=== PATIENT | female | born 1935 | race Caucasian/White ===

== ENCOUNTER 2018-02-14 20:45 | Observation (INO) | payer MEDICARE ==
[2018-02-14] MEDS: SOD CHLORIDE 0.9% 500 ML IV (21:16)
[2018-02-14] MEDS: DIPHTH/TET/ACEL PERTUSS (ADULT) 0.5 ML VIAL IM* (21:18)
[2018-02-14] MEDS: ACETAMINOPHEN 325 MG TAB PO (21:19)
[2018-02-14 21:20] LABS: ADD MAN DIFF? NO
[2018-02-14 21:22] LABS: WHITE BLOOD COUNT 5.9 10^3/ul (4.8-10.8)
[2018-02-14 21:22] LABS: BASOPHILS % 0.5 % (0.0-2.0); EOSINOPHILS # 0.1 10^3/ul (0.0-0.5); EOSINOPHILS % 0.9 % (0.0-7.0); HEMOGLOBIN 12.6 g/dl (12.0-16.0); LYMPHOCYTES # 1.4 10^3/ul (0.8-2.9); LYMPHOCYTES % 24.4 % (15.0-51.0); MEAN CORPUSCULAR HEMOGLOBIN 30.7 pg (29.0-33.0); MEAN CORPUSCULAR HGB CONC 33.2 g/dl (32.0-37.0); MEAN CORPUSCULAR VOLUME 92.7 fl (82.0-101.0); MEAN PLATELET VOLUME 9.5 fl (7.4-10.4); MONOCYTE # 0.5 10^3/ul (0.3-0.9); MONOCYTES % 8.9 % (0.0-11.0); NEUTROPHIL # 3.8 10^3/ul (1.6-7.5); PLATELET COUNT 254 10^3/UL (140-415); RED CELL DISTRIBUTION WIDTH 12.1 % (11.5-14.5)
[2018-02-14 21:47] LABS: INR 0.89; PROTIME 12.1 Sec (11.9-14.9); PT RATIO 0.9
[2018-02-14 21:48] LABS: PARTIAL THROMBOPLASTIN TIME 24.1 Sec (25.0-35.0)
[2018-02-14 21:54] LABS: ANION GAP 9 (8-16); BLOOD UREA NITROGEN 20 mg/dl (7-20); CALCIUM 9.1 mg/dl (8.4-10.2); CARBON DIOXIDE 29 mmol/L (21-31); CHLORIDE 104 mmol/L (97-110); GLUCOSE 98 mg/dl (70-220); POTASSIUM 3.8 mmol/L (3.5-5.1); SODIUM 138 mmol/L (135-144)
[2018-02-14 22:05] LABS: TROPONIN-I < 0.010 ng/ml (0.000-0.120)
[2018-02-14] MEDS: HALOPERIDOL 5 MG INJ IV (23:41)
[2018-02-14] MEDS: CLINDAMYCIN 600 MG/D5W (PMX) 50 ML IVPB (23:41)
[2018-02-15] MEDS ORDERED: MAGNESIUM HYDROXIDE 30ML CUP PO
[2018-02-15] MEDS ORDERED: ONDANSETRON 4 MG INJ IV ×2
[2018-02-15] MEDS ORDERED: ACETAMINOPHEN 325 MG TAB PO ×3
[2018-02-15] MEDS ORDERED: NACL 0.9% 3 ML SYG IV
[2018-02-15] MEDS ORDERED: LIDOCAINE 1% (MDV) 10 ML INJ INJ (00:05)
[2018-02-15] MEDS: LIDOCAINE 1% (MDV) 20 ML INJ INFIL (00:22)
[2018-02-15] MEDS: SOD CHLORIDE 0.9% 1,000 ML IV ×2 (00:30→17:53)
[2018-02-15] MEDS ORDERED: hydrALAzine 20 MG INJ IV (02:00)
[2018-02-15] MEDS: hydrALAzine 20 MG INJ IV (04:21)
[2018-02-15] MEDS: PANTOPRAZOLE (EC) 40 MG TAB PO (06:00)
[2018-02-15 06:14] LABS: ADD MAN DIFF? NO
[2018-02-15 06:23] LABS: WHITE BLOOD COUNT 8.1 10^3/ul (4.8-10.8)
[2018-02-15 06:23] LABS: BASOPHILS % 0.5 % (0.0-2.0); EOSINOPHILS % 0.2 % (0.0-7.0); HEMATOCRIT 39.9 % (37.0-47.0); HEMOGLOBIN 13.4 g/dl (12.0-16.0); LYMPHOCYTES % 11.9 % (15.0-51.0); MEAN CORPUSCULAR HEMOGLOBIN 30.5 pg (29.0-33.0); MEAN CORPUSCULAR HGB CONC 33.6 g/dl (32.0-37.0); MEAN CORPUSCULAR VOLUME 90.7 fl (82.0-101.0); MEAN PLATELET VOLUME 9.7 fl (7.4-10.4); MONOCYTE # 0.7 10^3/ul (0.3-0.9); MONOCYTES % 8.8 % (0.0-11.0); NEUTROPHIL # 6.4 10^3/ul (1.6-7.5); NEUTROPHILS % 78.4 % (39.0-77.0); PLATELET COUNT 265 10^3/UL (140-415); RED CELL DISTRIBUTION WIDTH 12.3 % (11.5-14.5)
[2018-02-15 06:40] LABS: ALANINE AMINOTRANSFERASE 13 IU/L (13-69); ALBUMIN 4.2 g/dl (3.3-4.9); ALKALINE PHOSPHATASE 72 IU/L (42-121); ANION GAP 10 (8-16); ASPARTATE AMINO TRANSFERASE 21 IU/L (15-46); BLOOD UREA NITROGEN 13 mg/dl (7-20); CALCIUM 9.4 mg/dl (8.4-10.2); CARBON DIOXIDE 28 mmol/L (21-31); CHLORIDE 106 mmol/L (97-110); GLUCOSE 93 mg/dl (70-220); MAGNESIUM 1.8 mg/dl (1.7-2.5); POTASSIUM 3.4 mmol/L (3.5-5.1); SODIUM 141 mmol/L (135-144)
[2018-02-15 07:48] LABS: HEMOGLOBIN A1C 5.3 % (0-5.9)
[2018-02-15] MEDS: METHENAMINE 1 GM TAB PO ×2 (10:22→21:24)
[2018-02-15] MEDS: CHOLECALCIFEROL 2,000 UNIT CAP PO (10:22)
[2018-02-15] MEDS: ASCORBIC ACID 500 MG TAB PO ×2 (10:23→21:24)
[2018-02-15] MEDS: CLINDAMYCIN 600 MG/D5W (PMX) 50 ML IVPB ×3 (10:26→23:41)
[2018-02-16] MEDS: CLINDAMYCIN 600 MG/D5W (PMX) 50 ML IVPB ×2 (05:42→13:59)
[2018-02-16] MEDS: PANTOPRAZOLE (EC) 40 MG TAB PO (05:45)
[2018-02-16] MEDS: CALCIUM CARBONATE 1.25 GM TAB PO (08:44)
[2018-02-16] MEDS: METHENAMINE 1 GM TAB PO (08:44)
[2018-02-16] MEDS: ASCORBIC ACID 500 MG TAB PO (08:44)
[2018-02-16] MEDS: CHOLECALCIFEROL 2,000 UNIT CAP PO (08:44)
[2018-02-16] MEDS: SOD CHLORIDE 0.9% 1,000 ML IV (08:45)
== END 2018-02-16 17:40 ==
LOC: E/R 20:45 → 6WM 23:35
DX: S02.40CA Maxillary fracture, right side, initial encounter for closed fracture (principal); S01.511A Laceration without foreign body of lip, initial encounter; W18.30XA Fall on same level, unspecified, initial encounter; G20 Parkinson's disease; F02.80 Dementia in other diseases classified elsewhere, unspecified severity, without behavioral disturbance, psychotic disturbance, mood disturbance, and anxiety; F41.9 Anxiety disorder, unspecified; M25.531 Pain in right wrist; R13.10 Dysphagia, unspecified; Z91.81 History of falling; Z79.82 Long term (current) use of aspirin
CPT/HCPCS: 12011; 36415; 70450; 70486; 71045; 73110-RT; 80048; 80053; 82962; 83036; 83735; 84443; 84484; 85025; 85610; 85730; 87081; 90471; 90715; 93005; 93306; 93880; 97162; 99285-25; G0378

== ENCOUNTER 2018-06-02 18:18 | Emergency (ER) | payer MEDICARE ==
[2018-06-02 18:49] LABS: ADD MAN DIFF? NO
[2018-06-02 18:52] LABS: BASOPHILS % 0.8 % (0.0-2.0); EOSINOPHILS # 0.1 10^3/ul (0.0-0.5); EOSINOPHILS % 1.2 % (0.0-7.0); HEMATOCRIT 38.4 % (37.0-47.0); HEMOGLOBIN 12.5 g/dl (12.0-16.0); LYMPHOCYTES # 1.2 10^3/ul (0.8-2.9); LYMPHOCYTES % 23.9 % (15.0-51.0); MEAN CORPUSCULAR HEMOGLOBIN 29.5 pg (29.0-33.0); MEAN CORPUSCULAR HGB CONC 32.6 g/dl (32.0-37.0); MEAN CORPUSCULAR VOLUME 90.6 fl (82.0-101.0); MEAN PLATELET VOLUME 9.8 fl (7.4-10.4); MONOCYTE # 0.5 10^3/ul (0.3-0.9); MONOCYTES % 9.5 % (0.0-11.0); NEUTROPHIL # 3.1 10^3/ul (1.6-7.5); NEUTROPHILS % 64.4 % (39.0-77.0); PLATELET COUNT 299 10^3/UL (140-415); RED BLOOD COUNT 4.24 10^6/ul (4.20-5.40); RED CELL DISTRIBUTION WIDTH 13.2 % (11.5-14.5)
[2018-06-02 18:52] LABS: WHITE BLOOD COUNT 4.9 10^3/ul (4.8-10.8)
[2018-06-02 19:11] LABS: ANION GAP 9 (5-13); BLOOD UREA NITROGEN 23 mg/dl (7-20); CALCIUM 9.3 mg/dl (8.4-10.2); CARBON DIOXIDE 27 mmol/L (21-31); CHLORIDE 106 mmol/L (97-110); CREATININE 0.62 mg/dl (0.44-1.00); GLUCOSE 113 mg/dl (70-220); INR 0.94; POTASSIUM 4.2 mmol/L (3.5-5.1); PROTIME 12.7 Sec (11.9-14.9); SODIUM 142 mmol/L (135-144)
[2018-06-02 19:22] LABS: TROPONIN-I < 0.012 ng/ml (0.000-0.120)
== END 2018-06-02 23:30 | disposition home or self-care (01) ==
LOC: E/R 23:30
DX: S00.83XA Contusion of other part of head, initial encounter (principal); R06.00 Dyspnea, unspecified; W01.0XXA Fall on same level from slipping, tripping and stumbling without subsequent striking against object, initial encounter; Y92.129 Unspecified place in nursing home as the place of occurrence of the external cause; Z79.82 Long term (current) use of aspirin
CPT/HCPCS: 70450; 71045; 80048; 84484; 85025; 85610; 99285-25

== ENCOUNTER 2018-10-03 08:18 | Emergency (ER) | payer MEDICARE, OTHER ==
[2018-10-03 08:59] LABS: ADD MAN DIFF? NO
[2018-10-03 09:02] LABS: BASOPHIL # 0.1 10^3/ul (0.0-0.1); BASOPHILS % 0.9 % (0.0-2.0); EOSINOPHILS % 0.7 % (0.0-7.0); HEMATOCRIT 41.6 % (37.0-47.0); HEMOGLOBIN 13.4 g/dl (12.0-16.0); LYMPHOCYTES % 17.9 % (15.0-51.0); MEAN CORPUSCULAR HEMOGLOBIN 30.6 pg (29.0-33.0); MEAN CORPUSCULAR HGB CONC 32.2 g/dl (32.0-37.0); MONOCYTE # 0.5 10^3/ul (0.3-0.9); NEUTROPHIL # 4.1 10^3/ul (1.6-7.5); NEUTROPHILS % 71.2 % (39.0-77.0); PLATELET COUNT 281 10^3/UL (140-415); RED BLOOD COUNT 4.38 10^6/ul (4.20-5.40); RED CELL DISTRIBUTION WIDTH 12.6 % (11.5-14.5)
[2018-10-03 09:02] LABS: WHITE BLOOD COUNT 5.8 10^3/ul (4.8-10.8)
[2018-10-03 09:28] LABS: ANION GAP 14 (5-13); BLOOD UREA NITROGEN 17 mg/dl (7-20); CALCIUM 9.6 mg/dl (8.4-10.2); CARBON DIOXIDE 27 mmol/L (21-31); CHLORIDE 105 mmol/L (97-110); CREATININE 0.57 mg/dl (0.44-1.00); GLUCOSE 71 mg/dl (70-220); POTASSIUM 4.2 mmol/L (3.5-5.1); SODIUM 146 mmol/L (135-144)
== END 2018-10-03 11:53 | disposition home or self-care (01) ==
LOC: E/R 11:53
DX: S09.90XA Unspecified injury of head, initial encounter (principal); R40.2142 Coma scale, eyes open, spontaneous, at arrival to emergency department; R40.2242 Coma scale, best verbal response, confused conversation, at arrival to emergency department; R40.2362 Coma scale, best motor response, obeys commands, at arrival to emergency department; R51 Headache; R06.02 Shortness of breath; W22.8XXA Striking against or struck by other objects, initial encounter; Y92.9 Unspecified place or not applicable; Z79.82 Long term (current) use of aspirin
CPT/HCPCS: 70450; 71045; 80048; 85025; 99285-25